=== PATIENT | female | born 1935 | race Caucasian/White ===

== ENCOUNTER 2021-02-03 18:34 | Emergency (ER) | payer BC, MEDICARE ==
[~2021-02-03] VITALS: Ht 160 cm; Wt 54.4 kg
[~2021-02-03 18:34] MED LIST: FURO20TA3 PO; HYDR-4833 PO; LISI2.5T47 PO; Levothyroxine Sodium PO; POT10T PO; POTA10TA51 PO
[2021-02-03 18:41] VITALS: BP 147/69
[2021-02-03] MEDS ORDERED: MIDAZOLAM DRIP 50 mg/50mL 50 ML IV ONE (18:44)
[2021-02-03] MEDS ORDERED: SUCCINYLCHOLINE CHLORIDE 20 MG/ML 10ML VIAL IV ONE ×2 (18:45)
[2021-02-03] MEDS ORDERED: MIDAZOLAM DRIP 50 mg/50mL 50 ML IV SCH (18:45)
[2021-02-03] MEDS ORDERED: ETOMIDATE (2MG/ML) 20ML VIAL IV ONE ×2 (18:45)
[2021-02-03 19:34] LABS: Basophils # (auto) 0.1 10 ^3/uL (0-0.2); Basophils % (auto) 0.6 % (0.0-2.0); Eosinophils # (auto) 0 10 ^3/uL (0-0.8); Eosinophils % (auto) 0.1 % (0.0-7.0); Hematocrit 46.3 % (36.0-46.0); Hemoglobin 15.1 g/dL (12.2-16.2); Lymphocytes # (auto) 1.1 10 ^3/uL (0.4-5.4); Lymphocytes % (auto) 5.6 % (10.0-50.0); Mean Corpuscular Hgb Conc. 32.6 g/dL (32.0-36.0); Mean Corpuscular Volume 92.2 fL (80.0-100.0); Neutrophils # (auto) 18.1 10 ^3/uL (1.6-8.6); Neutrophils % (auto) 88.7 % (37.0-80.0); Nucleated Red Blood Cells % 0.1 %; Red Blood Cells 5.03 10^6/uL (4.0-5.20); Red Cell Distribution Width 15.2 % (11.8-14.3); White Blood Cell 20.4 10^3/uL (4.4-10.8)
[2021-02-03 19:39] LABS: Blood Alcohol < 3.0 mg/dL (0-5)
[2021-02-03 20:10] VITALS: BP 175/71
[2021-02-03 20:26] LABS: INR 1.01 (0.9-1.15); Partial Thromboplastin Time 25.2 sec (23.6-33.0)
[2021-02-03 22:35] VITALS: BP 118/43
[2021-02-03 23:15] VITALS: BP 87/52
[2021-02-03] MEDS ORDERED: NOREPINEPHRINE 8 MG/250ML KIT 250 ML IV SCH (23:15)
== END 2021-02-03 23:25 | disposition short-term general hospital (02) ==
LOC: EDBD 18:34 → ER 18:41
DX: S06.300A Unspecified focal traumatic brain injury without loss of consciousness, initial encounter (principal); R41.82 Altered mental status, unspecified; I10 Essential (primary) hypertension; Z20.822 Contact with and (suspected) exposure to COVID-19; W18.39XA Other fall on same level, initial encounter; Y93.89 Activity, other specified; Y92.89 Other specified places as the place of occurrence of the external cause; Y99.8 Other external cause status
CPT/HCPCS: 36415; 36600; 70450; 71045; 80320; 82805; 83605; 83735; 85025; 85610; 85730; 86850; 86900; 86901; 87070; 87205; 87426; 93005; 96365; 99291; J0330; J2250; 94002